=== PATIENT | male | born 1980 | race Caucasian/White ===

== ENCOUNTER 2024-08-31 13:35 | Emergency (ER) | payer BC, SELFPAY ==
[2024-08-31 13:35] VITALS: BP 132/87; PULSE 122; RESP 18; TEMP 37.2; O2SAT 97
[2024-08-31] MEDS: LIDO 1%/EPINEPHRINE 1:100,000 20 ML VIAL 5 ML INFILTRATE (13:55)
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
--- OUTSIDE RECORDS SUMMARY | 2024-08-31 14:05 | XMS_ITS | Encounter Summary ---
Author Organization [facility] Address [address] [place] [id number] Care Team Providers Care Perioperative Manager Name Role Phone Eleuterio Arreaga MD Primary Care Provider [phone] Vince Arreaga MD Primary Care Provider Unavailab le Encounter Details Date Type Department Care Team (Late st Contact Info) Description 07/31/2018 Abstract SFL CONVERSION [address] [place], [place] [id number] , Generic Conversion, Social History Tobacco Use Types Packs/Day Years Used Date Smoking Tobacco: Never Assessed Sex and Gender Information Value Date Recorded Sex Assigned at Male 03/18/2024 7:34 AM DAYTIME CAREGIVER Legal Sex Male 10:38 PM DAYTIME CAREGIVER Gender Identity Not on file Sexual Orientation Not on file documented as of this encounter Plan of Treatment Not on file documented as of this encounter Visit Diagnoses Not on filedocumented in this encounter Care Teams Perioperative Manager Relationship Specialty Start Date End Date Eleuterio Arreaga MD [address] [place] [id number] PCP - General FAMILY PRACTICE 04/24/19 04/29/19 Vince Arreaga MD [address] [place] [address] PCP - General FAMILY PRACTICE 05/02/19 documented as of this encounter
--- OUTSIDE RECORDS SUMMARY | 2024-08-31 14:05 | XMS_ITS | Data Portability ---
Author Organization [facility], [address] [facility] ([place]) Address [address] [address] Care Team Providers Care Ground Instructor Advanced Name Role Phone SOUMYA JERNIGAN Primary Care Provider Assessment No assessment recorded. Plan of Treatment Reminders Order Date Submit Date Provider Last Modified By Organization Details Last Modified Time Details Appointments None recorded . Lab CBC w/ auto diff 024 02/10/20 24 [email or web address] [facility], [address] [place] [address], [id number], 5 15:20:04 CMP, serum or plasma 024 02/10/20 24 [email or web address] [facility], [facility] [address], [address], 5 15:20:04 Referral None recorded . Procedures None recorded . Surgeries None recorded . Imaging None recorded . Medication Orders None recorded . Patient TargetsNo targets recorded. Patient InstructionsNo instructions recorded. Reason for Referral None Reported. Results Created Date Observation Date Name Description Value Unit Range Abnormal Flag Note LastModifiedBy Organization Detail LastModifiedTime 02/10/20 24 02/11/2024 CBC w/ auto diff CBC with differential Not Available [facility] [address] [place] [address], [id number], 02/11/2024 15:13:24 02/10/20 24 02/11/2024 CBC w/ auto diff WBC 9.1 K/uL 4.8- 10.8 Not Available [facility] [address] [place] [address], [id number], 02/11/2024 15:13:24 02/10/20 24 02/11/2024 CBC w/ auto diff RBC 5.00 M/uL 4.70-6 .10 Not Available [facility] [address] [place] [address], [id number], 02/11/2024 15:13:24 02/10/20 24 02/11/2024 CBC w/ auto diff HGB 14.4 g/dL 14.0-1 8.0 Not Available [facility] [address] [place] [address], [id number], 02/11/2024 15:13:24 02/10/20 24 02/11/2024 CBC w/ auto diff HCT 43.6 % 42.0-5 2.0 Not Available [facility] [address] [place] [address], [id number], 02/11/2024 15:13:24 02/10/20 24 02/11/2024 CBC w/ auto diff MCV 87.2 fL 80.0-9 4.0 Not Available [facility] [address] [place] [address], [id number], 02/11/2024 15:13:24 02/10/20 24 02/11/2024 CBC w/ auto diff MCH 28.8 pg 27.0- 31.0 Not Available [facility] [address] [place] [address], [id number], 02/11/2024 15:13:24 02/10/20 24 02/11/2024 CBC w/ auto diff MCHC 33.0 g/dL 32.0-3 6.0 Not Available [facility] [address] [place] [address], [address], 02/11/2024 15:13:24 02/10/20 24 02/11/2024 CBC w/ auto diff RDW-SD 39.9 fL 35.1 - 46.3 Not Available [facility] [address] [place] [address], [id number], 02/11/2024 15:13:24 02/10/20 24 02/11/2024 CBC w/ auto diff plt 345 K/uL 130-40 0 Not Available [facility] [address] [place] [address], [id number], 02/11/2024 15:13:24 02/10/20 24 02/11/2024 CBC w/ auto diff MPV 11.4 fL 7.5- 11.8 Not Available [facility] [address] [place] [address], [id number], 02/11/2024 15:13:24 02/10/20 24 02/11/2024 CBC w/ auto diff rivka% 65.2 % not estab Not Available [facility] [address] [place] [address], [address], 02/11/2024 15:13:24 02/10/20 24 02/11/2024 CBC w/ auto diff lym% 21.5 % not estab Not Available [facility] [address] [place] [address], [id number], 02/11/2024 15:13:24 02/10/20 24 02/11/2024 CBC w/ auto diff mono% 9.7 % not estab Not Available [facility] [address] [place] [address], [id number], 02/11/2024 15:13:24 02/10/20 24 02/11/2024 CBC w/ auto diff eos% 2.1 % not estab Not Available [facility] [address] [place] [address], [id number], 02/11/2024 15:13:24 02/10/20 24 02/11/2024 CBC w/ auto diff baso% 0.7 % not estab Not Available [facility] [address] [place] [address], [id number], 02/11/2024 15:13:24 02/10/20 24 02/11/2024 CBC w/ auto diff abs rivka 5.9 K/uL 1.5-7. 5 Not Available [facility] [address] [place] [address], [id number], 02/11/2024 15:13:24 02/10/20 24 02/11/2024 CBC w/ auto diff abs lym 2.0 K/uL 1.2-3. 4 Not Available [facility] [address] [place] [address], [address], 02/11/2024 15:13:24 02/10/20 24 02/11/2024 CBC w/ auto diff abs mono 0.9 K/uL 0.1-1. 0 Not Available [facility] [address] [place] [address], [id number], 02/11/2024 15:13:24 02/10/20 24 02/11/2024 CBC w/ auto diff abs eos 0.2 K/uL 0.0-0. 7 Not Available [facility] [address] [place] [address], [address], 02/11/2024 15:13:24 02/10/20 24 02/11/2024 CBC w/ auto diff abs baso 0.1 K/uL 0.0-0. 2 Not Available [facility] [address] [place] [address], [address], 02/11/2024 15:13:24 02/10/20 24 02/11/2024 CBC w/ auto diff imm. gran % 0.8 % 0-5 Not Available [facility] [address] [place] [address], [address], 02/11/2024 15:13:24 02/10/20 24 02/11/2024 CBC w/ auto diff NRBC % 0.0 % 0.0-0. 2 Not Available [facility] [address] [place] [address], [address], 02/11/2024 15:13:24 02/10/20 24 02/11/2024 CMP, serum or plasm a comp. met. panel Not Available [facility] [address] [place] [address], [id number], 02/11/2024 15:41:56 02/10/20 24 02/11/2024 CMP, serum or plasm a sodium 140 mmol/ L 136-14 6 Not Available [facility] [address] [place] [address], [address], 02/11/2024 15:41:56 02/10/20 24 02/11/2024 CMP, serum or plasm a potassium 4.4 mmol/ L 3.5-5. 1 Not Available [facility] [address] [place] [address], [address], 02/11/2024 15:41:56 02/10/20 24 02/11/2024 CMP, serum or plasm a chloride 104 mmol/ L 98-110 Not Available [facility] [address] [place] [address], [address], 02/11/2024 15:41:56 02/10/20 24 02/11/2024 CMP, serum or plasm a CO2 27 mEq/L 20-32 Not Available [facility] [address] [place] [address], [address], 02/11/2024 15:41:56 02/10/20 24 02/11/2024 CMP, serum or plasm a anion gap 13 mmol/ L 10-22 Not Available [facility] [address] [place] [address], [address], 02/11/2024 15:41:56 02/10/20 24 02/11/2024 CMP, serum or plasm a glucose 87 mg/dL 70-100 Not Available [facility] [address] [place] [address], [address], 02/11/2024 15:41:56 02/10/20 24 02/11/2024 CMP, serum or plasm a calcium 9.2 mg/dL 8.4-10 .4 Not Available [facility] [address] [place] [address], [address], 02/11/2024 15:41:56 02/10/20 24 02/11/2024 CMP, serum or plasm a total protein 6.4 g/dL 6.4-8. 3 Not Available [facility] [address] [place] [address], [address], 02/11/2024 15:41:56 02/10/20 24 02/11/2024 CMP, serum or plasm a albumin 4.1 g/dL 3.5-5. 3 Not Available [facility] [address] [place] [address], [address], 02/11/2024 15:41:56 02/10/20 24 02/11/2024 CMP, serum or plasm a ALP 137 U/L 44 - 127 high Not Available [facility] [address] [place] [address], [address], 02/11/2024 15:41:56 02/10/20 24 02/11/2024 CMP, serum or plasm a AST (SGOT) 15 U/L 10-40 Not Available [facility] [address] [place] [address], [address], 02/11/2024 15:41:56 02/10/20 24 02/11/2024 CMP, serum or plasm a total bilirubin 0.2 mg/dL 0.2-1. 0 Not Available [facility] [address] [place] [address], [address], 02/11/2024 15:41:56 02/10/20 24 02/11/2024 CMP, serum or plasm a ALT (SGPT) 19 U/L 8-35 Not Available [facility] [address] [place] [address], [address], 02/11/2024 15:41:56 02/10/20 24 02/11/2024 CMP, serum or plasm a BUN 14 mg/dL 7-21 Not Available [facility] [address] [place] [address], [address], 02/11/2024 15:41:56 02/10/20 24 02/11/2024 CMP, serum or plasm a creatinine 1.2 mg/dL 0.7-1. 3 Not Available [facility] [address] [place] [address], [address], 02/11/2024 15:41:56 02/10/20 24 02/11/2024 CMP, serum or plasm a GFR(non-afri can uruguayan) 70 Not Available [facility] [address] [place] [address], [address], 02/11/2024 15:41:56 02/10/20 24 02/11/2024 CMP, serum or plasm a GFR() 85 (DELIVERY PERSON VERO KIDNE Y DISEA SE HAS A GFR LESS THAN 60 ML/OH N/1.7 3 MM FOR A PERIO D OF THREE MONTH S OR MORE. ) Not Available [facility] [address] [place] [address], [address], 02/11/2024 15:41:56 06/22/19 25 08/18/2021 imagi ng/di agnos tic resul t No observ ation record ed. [email or web address] Not Available 05:02:25 06/22/19 25 08/18/2021 imagi ng/di agnos tic resul t No observ ation record ed. [email or web address] Not Available 05:02:26 06/22/19 25 08/18/2021 imagi ng/di agnos tic resul t No observ ation record ed. [email or web address] Not Available 05:02:27 06/22/19 25 08/18/2021 imagi ng/di agnos tic resul t No observ ation record ed. [email or web address] Not Available 05:02:27 06/22/19 25 08/18/2021 imagi ng/di agnos tic resul t No observ ation record ed. [email or web address] Not Available 05:02:28 06/22/19 25 08/18/2021 imagi ng/di agnos tic resul t No observ ation record ed. [email or web address] Not Available 05:02:28 08/28/1905/02/2019 imagi ng/di agnos tic resul t No observ ation record ed. [email or web address] Not Available 0 08/27/2024 05:48:48 08/28/19 25 11/21/2017 imagi ng/di agnos tic resul t No observ ation record ed. [email or web address] Not Available 0 08/27/2024 05:48:52 08/28/19 25 11/21/2017 imagi ng/di agnos tic resul t No observ ation record ed. [email or web address] Not Available 0 08/27/2024 05:48:53 08/28/1911/23/2017 imagi ng/di agnos tic resul t No observ ation record ed. [email or web address] Not Available 0 08/27/2024 05:49:08 Result Notes None recorded. Problems Name Problem SNOMED Code Status Onset Date Resolution Date Notes Provider Name and Address Organization Details Recorded Time Rupture of rotator cuff of shoulder 022652860 Active 024 [facility] 15:38:00 Problem Notes None recorded. Procedures Surgical History Date Name Laterality Status Provider Name and Address Organization Details Recorded Time ankle joint operations completed [facility] 02/19/2024 15:38:02 Carpal Tunnel Surgery completed [facility] 02/19/2024 15:38:02 operation on nasal septum completed [facility] 02/19/2024 15:38:02 Imaging Results None recorded. Procedure Notes None recorded. Medical Equipment None Reported. Allergies Allergen ID Allergen Name Allergen Category Reaction Reaction Severity Criticality Documentation Date Start Date Code Code System Note Provider Name and Address Organization Details Recorded Time 100274 lansopraz ole medicatio n diarrhea Not available Not available 03/23/20232011 88464 RxNorm React ion: Diarr hea; Not Available [facility] 4 23:06:07 097203 cultivate d mushroom extract food Not available Not available Not available 03/23/20232011 04644 17 RxNorm Comme nt: Mushr oom ; Not Available [facility] 4 23:06:08 Medications Not known to be on any medication Vitals Date Recorded Body height Body mass index (BMI) Body weight Respiratory rate Body temperature Heart rate Oxygen saturation Oxygen saturation in Arterial blood by Pulse oximetry Systolic And Diastolic Provider Name and Address Organization Details Last Updated DateTime 5 185.42 cm 34.2 kg/m2 604307. 42 g 20 /min 96.8 [degF] 68 /min 98 % 98 % 144/86 mm[Hg] Arlin Daviesine [facility] 5 16:10:56 Date Recorded Body weight Body mass index (BMI) Body height Body temperature Respiratory rate Oxygen saturation Oxygen saturation in Arterial blood by Pulse oximetry Heart rate Systolic And Diastolic Provider Name and Address Organization Details Last Updated DateTime 4 192552. 95 g 32.1 kg/m2 185.42 cm 97.7 [degF] 20 /min 97 % 97 % 98 /min 138/84 mm[Hg] Cipriano Moorelandcynthia [facility] 4 15:38:00 Social History Question Answer Notes LastModified by Organizat ion Details LastModified Time Tobacco Smoking Status Current Every Day Smoker Angelica Virk [facility] 02/10/2024 14:31:41 How Many Packs Per Day (PPD)? 3/4 Ppd [email or web address] Information not available 03/15/2024 How Long Have You Smoked? 20 Yrs + [email or web address] Information not available 03/15/2024 Sex: Unknown Functional Status None recorded. Mental Status None recorded. Family History Relationship Description Onset Age of this Age Resolved Age Notes LastModified by Organization Details LastModified Time Father No current problems or disability [email or web address] Not available 01/24 15:38:00 Mother No current problems or disability [email or web address] Not available 01/24 15:38:00 Medical History No medical history recorded. Immunizations Vaccine Type Date Status Note Provider Nam e and Address Organization Details Recorded Time MMR 2 completed Arlin Sethi null, [facility] 03/15/2024 16:14:08 MMR 5 completed Arlin Sethi null, [facility] 03/15/2024 16:14:08 [facility] 2 [facility] 16:14:08 DTP 2 [facility] 03/15/2024 16:14:08 DTP 1 completed [facility] 03/15/2024 16:14:08 DTP 1 [facility] 03/15/2024 16:14:08 DTP 5 completed Arlin Sethi null, [facility] 03/15/2024 16:14:08 OPV 2 completed [facility] 03/15/2024 16:14:08 OPV 1 completed Arlin Sethi null, [facility] 03/15/2024 16:14:08 OPV 1 completed [facility] 03/15/2024 16:14:08 OPV 5 completed [facility] 03/15/2024 16:14:08 OPV 2 completed [facility] 03/15/2024 16:14:08 Novel [id number] completed Arlin Sethi [facility] 03/15/2024 16:14:08 Td (adult), 2 Lf tetanus toxoid, preservative free, adsorbed 2 completed Arlin Daviesine null, [facility] 03/15/2024 16:14:08 Hep B, adult 4 completed Arlin Daviesine [facility] 03/15/2024 16:14:08 Hep B, adult 3 completed Arlin Daviesine null, [facility] 03/15/2024 16:14:08 Hep B, adult 3 completed Arlin Daviesine [facility] 03/15/2024 16:14:08 Past Encounters Encounter ID Performer Location Encounter Start Date Encounter Closed Date Diagnosis/Indication Diagnosis SNOMED-CT Code Diagnosis ICD10 Code Diagnosis Note [id number] Soumya Jernigan MD [address] [address] 02/10/2024 14:26:19 02/10/2024 15:36:06 History and physical examination, annual for health maintenance 29088857 Z00.00 First enco unter by subject 051140916 Z76.89 Rupture of rotator cuff of shoulder 762391003 M75.100 Preoperative state 92021 002 Z01.818 Patient cleared from a medical standpoint and at this time considered low risk for surgery pending his lab results. Patient did not have any pre surgical paperwork and states his surgery is not actually scheduled yet because he needed clearance first. [id number] Soumya Jernigan MD [facility]) [facility] [place] [address] 03/15/2024 16:03:05 03/15/2024 16:27:12 History and physical examination, annual for health maintenance 06302523 Z00.00 Rupture of rotator cuff of shoulder 935777500 M75.100 Preoperative state 80973 002 Z01.818 Patient cleared from a medical standpoint and at this time considered low risk for surgery pending his lab results. Patient did not have any pre surgical paperwork and states his surgery is not actually scheduled yet because he needed clearance first. Health Concerns Section Related Observation LastModified by Organization Detai ls LastModified Time None Recorded Concern Status LastModified by Organization Details LastModified Time None Recorded Advance Directives Directive None Recorded Payers Insurance Date Sequence Insurance Name Policy Number Policy Barr Covered Member ID Barr Member ID Guarantor Name 03/14/2024 MEDICAID-[place]: [facility] Tariq Gonzalezeduin [id number] Tariq Turcios Mayte 03/14/2024 1 *SELF PAY* Jacek Turcios Mayte 02/19/2024 1 *SELF PAY* Jacek Turcios Mayte 03/27/2024 1 [facility]MEDICAID REPLACEMENT - HMO) [id number] Tariq Turcios Mayte [id number] Tariq Turcios Mayte Notes Date Note Type Note Provider Name and Address Organization Details Recorded Time 02/10/2024 text/html Pre-OpReported bypatient.Risk Factorsno cognitive impairment; no functional impairment; no malnutrition; no frailty; able to climb a flight of stairs (exercise capacity>4 METS); no obstructive sleep apnea; non-smoker; no alcohol misuse; no chronic cardiopulmonary condition Anesthesia hx:no hx of anesthesia complications; no allergy to anesthetic agents; no family history of anesthesia complications Functional Ability:able to walk up stairs; able to perform heavy work around the house; no difficulty walking up hills; able to walk 4 mph Post-Op Support:adequate assistance at home The patient is here today for a new patient visit to establish care. He was previously a patient of Dr. Vince Arreaga.He reports that he needs to be cleared for surgery to repair his rotator cuff. Once he is cleared, he can contact his doctor at [facility] to get scheduled. He sees Dr. Cole Caceres. Patient states he has no chronic medical issues. States no bleeding or clotting disorders. States no issues with anesthesia. He is a current smoker. Soumya Jernigan MD [facility] [place] [address], [phone], [facility] 02/10/2024 15:24:37 03/15/2024 text/html Pre-OpReported bypatient.Risk Factorsno cognitive impairment; no functional impairment; no malnutrition; no frailty; able to climb a flight of stairs (exercise capacity>4 METS); no obstructive sleep apnea; no alcohol misuse; no chronic cardiopulmonary condition;smoker Anesthesia hx:no hx of anesthesia complications; no allergy to anesthetic agents; no family history of anesthesia complications Functional Ability:able to walk up stairs; able to perform heavy work around the house; no difficulty walking up hills; able to walk 4 mph Post-Op Support:adequate assistance at home patient is here today check up/pre op. he is scheduled to have right rotator cuff surgery on this 03/18/[address] Cole Caceres at [facility] at [facility] as it was rescheduled from his original date. The patient is here today for a new patient visit to establish care. He was previously a patient of Dr. Vince Arreaga.He reports that he needs to be cleared for surgery to repair his rotator cuff. Once he is cleared, he can contact his doctor at [facility] to get scheduled. He sees Dr. Cole Caceres. Patient states he has no chronic medical issues. States no bleeding or clotting disorders. States no issues with anesthesia. He is a current smoker. Soumya Jernigan MD [address] [place] [address], [phone], [facility] 03/17/2024 14:33:22
[2024-08-31] MEDS: NEOMYCIN/POLYMYXIN/BACITRACIN OINTMENT PACKET 1 PACKET (14:25)
--- NOTE | 2024-08-31 14:31 | ED.WOUNDLAC ---
HPI - Wound/Laceration General Chief Complaint: Wound/Laceration Stated Complaint: laceration to left arm Time Seen by Provider: 08/31/24 13:47 Source: patient Mode of arrival: ambulatory Limitations: no limitations History of Present Illness HPI narrative: 44 years old white male came to the ED with laceration at the back of left elbow within 30 minutes prior to arrival, patient elbow got caught on a metal Hook during working with concrete. He denies other injuries Related Data Allergies Allergy/AdvReac Type Severity Reaction Status Date / Time No Known Allergies Allergy Verified 08/31/24 13:45 Review of Systems Review of Systems: All systems reviewed & are unremarkable except as noted in HPI and below Exam Narrative: General appearance: Well-developed, well-nourished Skin: Normal color Head: Normocephalic, nontraumatic Eyes: Clear conjunctiva Neck: Supple, nontender Chest and respiratory: Airway patent, no respiratory distress, no accessory muscle use Heart: Regular rate/rhythm Abdomen: Soft, nontender, no organomegaly, quiet bowel sounds Vascular: Normal peripheral pulses, normal capillary refill. Musculoskeletal: left elbow exam showed subcutaneous laceration, flap, 7 cm Neurologic: Alert and oriented ?3, UNDERWRITING ACCOUNT REPRESENTATIVE is normal as tested, no gross motor deficit Course Vital Signs Vital signs: Vital Signs Temperature 37.2 C 08/31/24 13:35 Pulse Rate 122 H 08/31/24 13:35 Respiratory Rate 18 08/31/24 13:35 Blood Pressure 132/87 08/31/24 13:35 Pulse Oximetry 97 08/31/24 13:35 Oxygen Delivery Room Air 08/31/24 13:35 Temperature 37.2 C 08/31/24 13:35 Pulse Rate 98 08/31/24 14:45 Respiratory Rate 18 08/31/24 14:45 Blood Pressure 130/76 08/31/24 14:45 Pulse Oximetry 98 08/31/24 14:45 Oxygen Delivery Room Air 08/31/24 14:45 Procedures Laceration Laceration 1: Date: 08/31/24 Site: upper extremity Side (If applicable): left Size (cm): 6 Description: flap Depth: simple, single layer Local Anesthetic: lidocaine 1% and with epi Amount of anesthesia used (mL): 6 Pre-repair: wound explored, irrigated and deep structures intact ====== Skin Level ====== Skin layer closed with: nylon Size (cm): 6-0 Number of sutures: 12 Technique: simple, interrupted ====== Subcutaneous Layer ====== ====== Muscle Layer ====== ====== Tendon Layer ====== Critical Care Time Critical Care Time Critical Care Time: No Discharge Plan Discharge Clinical Impression: Laceration Patient Disposition: Home Condition: Improved Instructions: Antibiotic Form, Laceration (DC) Additional Instructions: Return if symptoms are worsening , call your family physician for appointment, take Tylenol as as needed for aches and pain, continue home medications. remove sutures in 8 days Patient Language: Uzbek Prescriptions: New cephalexin 500 mg tablet 500 mg PO Q6H 7 Days Qty: 28 0RF Follow-up/Referrals: Fredrick,Soumya Jasso MD [Primary Care Provider] - Stand Alone Forms: Work/School Release IP
[2024-08-31 14:45] VITALS: BP 130/76; PULSE 98; RESP 18; O2SAT 98
== END 2024-08-31 14:45 | disposition home or self-care (01) ==
PROVIDERS: Emergency Provider Emergency Medicine; PCP Family Medicine
DX: S51.012A Laceration without foreign body of left elbow, initial encounter (principal); W26.8XXA Contact with other sharp object(s), not elsewhere classified, initial encounter; Y99.0 Civilian activity done for income or pay
CPT/HCPCS: 12002; 99283; J2004